=== PATIENT | female | born 1985 | race Caucasian/White ===

== ENCOUNTER 2019-03-08 18:03 | Inpatient (IN) | payer BC ==
[~2019-03-08] VITALS: Ht 167.6 cm; Wt 92.5 kg
[2019-03-08] MEDS ORDERED: SODIUM CHLORIDE 0.9% 1,000 ML IV ONE (21:52)
[2019-03-08] MEDS ORDERED: MORPHINE SULFATE 4 MG/ML CPJ (NOT FOR IM USE) IV STA (21:52)
[2019-03-08] MEDS ORDERED: ONDANSETRON HCL 4MG/2ML INJ IV STA (21:52)
[2019-03-08 22:21] LABS: CLARITY URINE CLEAR (CLEAR); COLOR URINE YELLOW (YELLOW); KETONES URINE 1+ (NEGATIVE); LEUKOCYTE ESTERASE URINE NEGATIVE (NEGATIVE); NITRITE URINE NEGATIVE (NEGATIVE); OCCULT BLOOD URINE NEGATIVE (NEGATIVE); PROTEIN URINE NEGATIVE (NEGATIVE); UROBILINOGEN URINE 0.2 E.U./dL (0.2-1.0)
[2019-03-08 22:53] LABS: BASOPHILS % 0.3 % (0.0-2.0); EOSINOPHILS % 0.5 % (0.0-5.0); HEMATOCRIT. 34.6 % (36.0-48.0); HEMOGLOBIN. 11.7 g/dL (12.0-16.0); LYMPHOCYTES % 35.8 % (20.0-50.0); MEAN CORPUSCULAR HEMOGLOBIN 27.8 pg (28.0-32.0); MEAN CORPUSCULAR VOLUME 82.3 fL (81.0-99.0); MEAN PLATELET VOLUME 7.7 fl (7.4-10.4); MONOCYTES % 5.9 % (2.0-8.0); NEUTROPHILS % 57.5 % (40.0-76.0); PLATELET 259 x1000/uL (130-400); RED BLOOD CELL COUNT 4.21 mill/uL (4.2-5.4)
[2019-03-08 22:55] LABS: HCG SCREEN NEGATIVE
[2019-03-08 22:56] LABS: PROTHROMBIN TIME 10.2 sec (9.6-11.0)
[2019-03-08 22:57] LABS: CHLORIDE 106 mEq/L (98-107)
[2019-03-08 23:01] LABS: ETHANOL BLOOD < 10 mg/dL
[2019-03-09] MEDS ORDERED: PIPERACILLIN/TAZ 3.375G PREMIX 50 ML IV ONE (00:15)
[2019-03-09] MEDS: MORPHINE SULFATE 2 MG/ML CPJ (NOT FOR IM USE) IV PRN ×2 (03:19→06:16)
[2019-03-09] MEDS ORDERED: HYDROMORPHONE HCL/PF 2MG/ML CPJ IV PRN (07:15)
[2019-03-09] MEDS ORDERED: ONDANSETRON HCL 4MG/2ML INJ IV PRN ×3 (07:15→09:15)
[2019-03-09] MEDS ORDERED: FENTANYL CITRATE/PF 50MCG/ML 2ML VIAL IV PRN (07:15)
[2019-03-09] MEDS ORDERED: ACETAMINOPHEN 325MG TABLET PO PRN (08:30)
[2019-03-09] MEDS ORDERED: SODIUM CHLORIDE 0.9% 1,000 ML IV SCH (08:30)
[2019-03-09] MEDS ORDERED: SKIN ADHESIVE 0.7 GM EA TOP ONE (09:05)
[2019-03-09] MEDS ORDERED: BUPIVACAINE HCL 0.5% (5MG/ML) 50ML ONE (09:06)
[2019-03-09] MEDS ORDERED: DEXT 5%/0.45% NACL KCL 20MEQ/L 1,000 ML IV SCH (09:12)
[2019-03-09] MEDS ORDERED: SUCCINYLCHOLINE CHLORIDE 200MG/10ML IV ONE (09:13)
[2019-03-09] MEDS ORDERED: PROPOFOL 200MG/20ML VIAL IV ONE (09:13)
[2019-03-09] MEDS ORDERED: FENTANYL CITRATE/PF 50MCG/ML 2ML VIAL ONE (09:13)
[2019-03-09] MEDS ORDERED: MIDAZOLAM HCL 2 MG/2 ML VIAL ONE (09:13)
[2019-03-09] MEDS ORDERED: LIDOCAINE HCL/PF 1% 10 MG/ML 5ML VIAL ONE (09:14)
[2019-03-09] MEDS ORDERED: MORPHINE SULFATE 4 MG/ML CPJ (NOT FOR IM USE) IV PRN (09:15)
[2019-03-09] MEDS ORDERED: HYDROCODONE/ACETAMINOPHEN 5/325MG TABLET PO PRN ×2 (09:15)
[2019-03-09] MEDS ORDERED: ROCURONIUM BROMIDE 10MG/ML VIAL 5ML IV ONE (09:17)
[2019-03-09] MEDS ORDERED: ESMOLOL HCL 10MG/ML 10ML VIAL IV ONE (09:30)
[2019-03-09] MEDS ORDERED: DEXAMETHASONE 4MG/ML 1ML VIAL ONE (09:30)
[2019-03-09] MEDS ORDERED: CEFAZOLIN SODIUM 1000MG/VIAL ONE (09:38)
[2019-03-09] MEDS ORDERED: KETOROLAC 30MG/ML VIAL ONE (09:47)
[2019-03-09] MEDS ORDERED: ONDANSETRON HCL 4MG/2ML INJ ONE (09:47)
[2019-03-09] MEDS ORDERED: METOCLOPRAMIDE HCL 10MG/2ML VIAL ONE (09:47)
[2019-03-09] MEDS ORDERED: NEOSTIGMINE METHYLSULFATE 1MG/ML 10 ML VIAL ONE (09:51)
[2019-03-09] MEDS ORDERED: GLYCOPYRROLATE 0.2 MG/ML 2ML VIAL ONE (09:51)
[2019-03-09] MEDS: DEXT 5%/0.45% NACL KCL 20MEQ/L 1,000 ML IV SCH ×2 (11:00→20:59)
[2019-03-09 12:00] VITALS: BP 118/64
[2019-03-09 12:18] VITALS: BP 127/79
[2019-03-09] MEDS: HYDROCODONE/ACETAMINOPHEN 5/325MG TABLET PO PRN ×2 (13:31→20:59)
[2019-03-09] MEDS ORDERED: METF-416 PO (13:54)
[2019-03-09] MEDS ORDERED: LOVA10TA54 PO (13:54)
[2019-03-09 16:00] VITALS: BP 114/60
[2019-03-09] MEDS: METFORMIN HCL 500MG TABLET PO SCH (17:13)
[2019-03-09 20:00] VITALS: BP 112/76
[2019-03-09] MEDS ORDERED: ATORVASTATIN CALCIUM 10MG TABLET PO SCH (21:00)
[2019-03-10] VITALS: BP 110/69
[2019-03-10 04:00] VITALS: BP 97/66
[2019-03-10 06:57] LABS: BASOPHILS % 0.2 % (0.0-2.0); EOSINOPHILS % 0.1 % (0.0-5.0); HEMATOCRIT. 32.4 % (36.0-48.0); HEMOGLOBIN. 10.8 g/dL (12.0-16.0); LYMPHOCYTES % 25.3 % (20.0-50.0); MEAN CORPUSCULAR HEMOGLOBIN 27.5 pg (28.0-32.0); MEAN CORPUSCULAR VOLUME 82.3 fL (81.0-99.0); MONOCYTES % 6.7 % (2.0-8.0); NEUTROPHILS % 67.7 % (40.0-76.0); PLATELET 261 x1000/uL (130-400); RED BLOOD CELL COUNT 3.93 mill/uL (4.2-5.4); RED CELL DISTRIBUTION WIDTH 14.1 % (11.6-14.6)
[2019-03-10 07:26] LABS: CHLORIDE 107 mEq/L (98-107)
[2019-03-10 08:00] VITALS: BP 107/75
[2019-03-10] MEDS: DEXT 5%/0.45% NACL KCL 20MEQ/L 1,000 ML IV SCH (08:45)
[2019-03-10] MEDS: METFORMIN HCL 500MG TABLET PO SCH (08:45)
[2019-03-10 09:40] VITALS: BP 107/75
== END 2019-03-10 10:16 | disposition home or self-care (01) | DRG 343 ==
LOC: ER 18:03 → 6EST 03-09 00:32 → ENRESERV 03-09 07:00
PROVIDERS: ADMIT Internal Medicine; ATTEND Internal Medicine
PROC: 0DTJ4ZZ Resection of Appendix, Percutaneous Endoscopic Approach (ICD-10-PCS; principal; 2019-03-09)
DX: K35.80 Unspecified acute appendicitis (principal); E11.9 Type 2 diabetes mellitus without complications; E28.2 Polycystic ovarian syndrome; E78.00 Pure hypercholesterolemia, unspecified; Z98.891 History of uterine scar from previous surgery; Z88.1 Allergy status to other antibiotic agents
CPT/HCPCS: 36415; 74176; 80048; 80320; 81025; 82962; 83036; 83605; 84484; 84703; 88304; 96361; 96365; 96366; 96375; 99285; J0330; J0690; J1100; J1170; J1885; J2250; J2270; J2405; J2543; J2704; J2710; J2765; J3010; J3490; J7030; G0480

== ENCOUNTER → 2019-07-24 | Outpatient (CLI) | payer BC ==
[~2019-07-24] MED LIST: LOVA10TA54 PO; METF-416 PO
[2019-07-24 08:00] LABS: BASOPHILS % 0.5 % (0.0-2.0); EOSINOPHILS % 0.4 % (0.0-5.0); HEMATOCRIT. 37.1 % (36.0-48.0); HEMOGLOBIN. 12.2 g/dL (12.0-16.0); LYMPHOCYTES % 34.8 % (20.0-50.0); MEAN CORPUSCULAR HEMOGLOBIN 26.4 pg (28.0-32.0); MEAN CORPUSCULAR VOLUME 80.6 fL (81.0-99.0); MEAN PLATELET VOLUME 7.8 fl (7.4-10.4); MONOCYTES % 5.1 % (2.0-8.0); NEUTROPHILS % 59.2 % (40.0-76.0); PLATELET 274 x1000/uL (130-400); RED BLOOD CELL COUNT 4.61 mill/uL (4.2-5.4); RED CELL DISTRIBUTION WIDTH 14.8 % (11.6-14.6)
[2019-07-24 08:14] LABS: CHLORIDE 104 mEq/L (98-107)
[2019-07-24 08:22] LABS: LDL CHOLESTEROL 119 mg/dL (5-100)
[2019-07-24 08:23] LABS: HDL CHOLESTEROL 48 mg/dL (40-59)
[2019-07-25 10:08] LABS: *CREATININE RANDOM URINE 102.1 mg/dL (Not Estab.)
== END | disposition home or self-care (01) ==
LOC: LAB 07:22
PROVIDERS: ATTEND Internal Medicine
DX: Z00.00 Encounter for general adult medical examination without abnormal findings (principal)
CPT/HCPCS: 36415; 80061; 82043; 82306; 82570; 83036; 84443

== ENCOUNTER 2019-07-26 13:02 | Emergency (ER) | payer BC ==
[~2019-07-26] VITALS: Ht 160 cm; Wt 90.0 kg
[2019-07-26] MEDS ORDERED: SODIUM CHLORIDE 0.9% 1,000 ML IV ONE (13:40)
[2019-07-26] MEDS ORDERED: KETOROLAC 30MG/ML VIAL IV STA (13:40)
[2019-07-26] MEDS ORDERED: ONDANSETRON HCL 4MG/2ML INJ IV STA ×2 (13:40→15:57)
[2019-07-26 14:16] LABS: CLARITY URINE CLEAR (CLEAR); COLOR URINE YELLOW (YELLOW); KETONES URINE 1+ (NEGATIVE); LEUKOCYTE ESTERASE URINE NEGATIVE (NEGATIVE); NITRITE URINE NEGATIVE (NEGATIVE); OCCULT BLOOD URINE NEGATIVE (NEGATIVE); PH URINE 5.5 (4.5-8.0); PROTEIN URINE NEGATIVE (NEGATIVE); UROBILINOGEN URINE 0.2 E.U./dL (0.2-1.0)
[2019-07-26 14:16] LABS: BASOPHILS % 0.2 % (0.0-2.0); EOSINOPHILS % 0.2 % (0.0-5.0); HEMATOCRIT. 38.1 % (36.0-48.0); HEMOGLOBIN. 12.6 g/dL (12.0-16.0); LYMPHOCYTES % 25.1 % (20.0-50.0); MEAN CORPUSCULAR HEMOGLOBIN 26.7 pg (28.0-32.0); MEAN CORPUSCULAR VOLUME 80.5 fL (81.0-99.0); MEAN PLATELET VOLUME 7.8 fl (7.4-10.4); MONOCYTES % 4.9 % (2.0-8.0); NEUTROPHILS % 69.6 % (40.0-76.0); PLATELET 295 x1000/uL (130-400); RED BLOOD CELL COUNT 4.73 mill/uL (4.2-5.4); RED CELL DISTRIBUTION WIDTH 14.8 % (11.6-14.6)
[2019-07-26 14:20] LABS: CHLORIDE 103 mEq/L (98-107)
[2019-07-26 14:36] LABS: HCG SCREEN NEGATIVE
[2019-07-26] MEDS ORDERED: MORPHINE SULFATE 4 MG/ML CPJ (NOT FOR IM USE) IV STA (15:57)
[2019-07-26 16:48] VITALS: BP 127/77
== END 2019-07-26 16:51 | disposition home or self-care (01) ==
LOC: ER 13:02
DX: R10.31 Right lower quadrant pain (principal); E78.00 Pure hypercholesterolemia, unspecified; E11.9 Type 2 diabetes mellitus without complications; Z79.84 Long term (current) use of oral hypoglycemic drugs; Z90.49 Acquired absence of other specified parts of digestive tract
CPT/HCPCS: 36415; 74176; 80053; 81003; 83690; 84703; 85025; 96374; 96375; 96376; 99284; J1885; J2270; J2405; J7030

== ENCOUNTER 2019-10-30 20:40 | Emergency (ER) | payer BC ==
[~2019-10-30] VITALS: Ht 165.1 cm; Wt 93.0 kg
[2019-10-30] MEDS ORDERED: ACETAMINOPHEN 325MG TABLET PO PRN (21:45)
[2019-10-30 22:07] LABS: CLARITY URINE CLEAR (CLEAR); COLOR URINE YELLOW (YELLOW); KETONES URINE TRACE (NEGATIVE); LEUKOCYTE ESTERASE URINE NEGATIVE (NEGATIVE); NITRITE URINE NEGATIVE (NEGATIVE); OCCULT BLOOD URINE NEGATIVE (NEGATIVE); PROTEIN URINE NEGATIVE (NEGATIVE); SPECIFIC GRAVITY URINE 1.023 (1.005-1.030); UROBILINOGEN URINE 0.2 E.U./dL (0.2-1.0)
[2019-10-30 23:20] LABS: CHLORIDE 106 mEq/L (98-107)
[2019-10-30 23:23] LABS: BASOPHILS % 0.4 % (0.0-2.0); EOSINOPHILS % 0.5 % (0.0-5.0); HEMATOCRIT. 36.3 % (36.0-48.0); MEAN CORPUSCULAR HEMOGLOBIN 26.2 pg (28.0-32.0); MEAN CORPUSCULAR VOLUME 79.3 fL (81.0-99.0); MEAN PLATELET VOLUME 7.7 fl (7.4-10.4); MONOCYTES % 7.5 % (2.0-8.0); NEUTROPHILS % 47.6 % (40.0-76.0); PLATELET 313 x1000/uL (130-400); RED BLOOD CELL COUNT 4.57 mill/uL (4.2-5.4); RED CELL DISTRIBUTION WIDTH 15.2 % (11.6-14.6)
[2019-10-30 23:30] LABS: B-HCG QUANTITATIVE 177 mIU/mL (<3)
[2019-10-31 00:31] VITALS: BP 113/68
== END 2019-10-31 00:34 | disposition home or self-care (01) ==
LOC: ER 20:40
DX: O9A.211 Injury, poisoning and certain other consequences of external causes complicating pregnancy, first trimester (principal); S39.91XA Unspecified injury of abdomen, initial encounter; O20.0 Threatened abortion; O99.281 Endocrine, nutritional and metabolic diseases complicating pregnancy, first trimester; E78.00 Pure hypercholesterolemia, unspecified; O24.911 Unspecified diabetes mellitus in pregnancy, first trimester; Z3A.01 Less than 8 weeks gestation of pregnancy; Z90.49 Acquired absence of other specified parts of digestive tract; Z98.890 Other specified postprocedural states; Z88.1 Allergy status to other antibiotic agents; W01.0XXA Fall on same level from slipping, tripping and stumbling without subsequent striking against object, initial encounter; Y93.89 Activity, other specified; Y92.89 Other specified places as the place of occurrence of the external cause; Y99.8 Other external cause status
CPT/HCPCS: 36415; 76801; 80053; 81003; 84702; 85025; 86850; 86900; 99285

== ENCOUNTER 2019-11-02 09:15 | Emergency (ER) | payer BC ==
[~2019-11-02] VITALS: Ht 165.1 cm; Wt 91.0 kg
[2019-11-02 09:36] VITALS: BP 137/86
== END 2019-11-02 11:30 | disposition home or self-care (01) ==
LOC: ER 09:15
DX: O26.891 Other specified pregnancy related conditions, first trimester (principal); N89.8 Other specified noninflammatory disorders of vagina; O24.911 Unspecified diabetes mellitus in pregnancy, first trimester; Z88.1 Allergy status to other antibiotic agents; Z88.8 Allergy status to other drugs, medicaments and biological substances; Z90.49 Acquired absence of other specified parts of digestive tract; Z3A.01 Less than 8 weeks gestation of pregnancy; Z98.890 Other specified postprocedural states
CPT/HCPCS: 36415; 76801; 84702; 99284

== ENCOUNTER → 2019-11-14 | Outpatient (CLI) | payer BC ==
[2019-11-14 09:22] LABS: T4 FREE 1.28 ng/dL (0.76-1.46)
[2019-11-16 09:06] LABS: HBSAG SCREEN Negative (Negative); HIV SCREEN 4G Non Reactive (Non Reactive)
[2019-11-17 13:10] LABS: HGB A 98.8 % (96.4-98.8); HGB A2 1.2 % (1.8-3.2)
[2019-11-18 13:06] LABS: 25-HYDROXY VITAMIN D3 15 ng/mL (.)
== END | disposition home or self-care (01) ==
LOC: LAB 08:18
PROVIDERS: ATTEND Obstetrics & Gynecology Obstetrics
DX: Z34.00 Encounter for supervision of normal first pregnancy, unspecified trimester (principal); Z3A.01 Less than 8 weeks gestation of pregnancy
CPT/HCPCS: 36415; 82306; 82947; 83021; 83036; 84439; 85660; 86592; 86762; 86803; 86900; 87340; 87389

== ENCOUNTER 2020-05-09 10:27 | Observation (INO) | payer BC ==
[~2020-05-09] VITALS: Ht 167.6 cm; Wt 107.0 kg
[2020-05-09] MEDS ORDERED: NPH,100V SQ ×2 (11:11→11:14)
[2020-05-09] MEDS ORDERED: INSLIS SUBCUT ×2 (11:13→11:16)
[2020-05-09 12:30] LABS: BASOPHILS % 0.3 % (0.0-2.0); EOSINOPHILS % 0.2 % (0.0-5.0); HEMATOCRIT. 35.7 % (36.0-48.0); LYMPHOCYTES % 22.5 % (20.0-50.0); MEAN CORPUSCULAR HEMOGLOBIN 29.4 pg (28.0-32.0); MEAN CORPUSCULAR VOLUME 87.3 fL (81.0-99.0); MONOCYTES % 5.4 % (2.0-8.0); NEUTROPHILS % 71.6 % (40.0-76.0); PLATELET 212 x1000/uL (130-400); RED BLOOD CELL COUNT 4.09 mill/uL (4.2-5.4); RED CELL DISTRIBUTION WIDTH 13.2 % (11.6-14.6)
[2020-05-09 12:38] LABS: CHLORIDE 108 mEq/L (98-107)
[2020-05-09 12:44] LABS: D-DIMER 0.65 mg/L FEU (<0.50); INR 0.9; PARTIAL THROMBOPLASTIN TIME 26.8 sec (23.4-31.0); PROTHROMBIN TIME 9.7 sec (9.6-11.0)
[2020-05-09 13:36] LABS: CLARITY URINE CLEAR (CLEAR); COLOR URINE YELLOW (YELLOW); KETONES URINE NEGATIVE (NEGATIVE); LEUKOCYTE ESTERASE URINE NEGATIVE (NEGATIVE); NITRITE URINE NEGATIVE (NEGATIVE); OCCULT BLOOD URINE NEGATIVE (NEGATIVE); PH URINE 6.5 (4.5-8.0); PROTEIN URINE NEGATIVE (NEGATIVE); SPECIFIC GRAVITY URINE 1.009 (1.005-1.030); UROBILINOGEN URINE 0.2 E.U./dL (0.2-1.0)
== END 2020-05-09 13:45 | disposition home or self-care (01) ==
LOC: 8 EST LDRP 10:27
PROVIDERS: ADMIT Obstetrics & Gynecology Obstetrics; ATTEND Obstetrics & Gynecology Obstetrics
DX: O13.3 Gestational [pregnancy-induced] hypertension without significant proteinuria, third trimester (principal); O24.414 Gestational diabetes mellitus in pregnancy, insulin controlled; O26.893 Other specified pregnancy related conditions, third trimester; R51 Headache; Z3A.31 31 weeks gestation of pregnancy
CPT/HCPCS: 36415; 80053; 81003; 84550; 85025; 85379; 85384; 85610; 85730; G0378; 99281

== ENCOUNTER 2020-05-22 11:26 | Observation (INO) | payer BC ==
[~2020-05-22] VITALS: Ht 167.6 cm; Wt 108.9 kg
[~2020-05-22 11:26] MED LIST changes: +INSLIS SUBCUT; +NPH,100V SQ
[2020-05-22] MEDS ORDERED: METF-416 MT (11:51)
[2020-05-22] MEDS ORDERED: METF-414 MT (11:52)
== END 2020-05-22 12:50 | disposition home or self-care (01) ==
LOC: 8 EST LDRP 11:26
PROVIDERS: ADMIT Obstetrics & Gynecology Obstetrics; ATTEND Obstetrics & Gynecology Obstetrics
DX: O36.8130 Decreased fetal movements, third trimester, not applicable or unspecified (principal); Z3A.33 33 weeks gestation of pregnancy
CPT/HCPCS: 59025; G0378; 99281

== ENCOUNTER 2020-06-04 21:46 | Inpatient (IN) | payer BC ==
[~2020-06-04] VITALS: Ht 167.6 cm; Wt 108.9 kg
[2020-06-04] MEDS: LACTATED RINGERS 1,000 ML IV SCH (00:08)
[~2020-06-04 21:46] MED LIST changes: +METF-414 MT; +METF-416 MT; -METF-416 PO
[2020-06-04] MEDS ORDERED: TERBUTALINE SULFATE 1MG/ML VIAL SUBCUT PRN (23:30)
[2020-06-04 23:49] LABS: BASOPHILS % 0.2 % (0.0-2.0); EOSINOPHILS % 0.3 % (0.0-5.0); LYMPHOCYTES % 18.2 % (20.0-50.0); MEAN CORPUSCULAR HEMOGLOBIN 29.6 pg (28.0-32.0); MEAN CORPUSCULAR VOLUME 85.9 fL (81.0-99.0); MEAN PLATELET VOLUME 8.7 fl (7.4-10.4); MONOCYTES % 5.9 % (2.0-8.0); NEUTROPHILS % 75.4 % (40.0-76.0); PLATELET 166 x1000/uL (130-400); RED BLOOD CELL COUNT 3.73 mill/uL (4.2-5.4)
[2020-06-04 23:54] LABS: CHLORIDE 108 mEq/L (98-107)
[2020-06-05 00:01] LABS: INR 0.9; PARTIAL THROMBOPLASTIN TIME 25.7 sec (23.4-31.0); PROTHROMBIN TIME 9.6 sec (9.6-11.0)
[2020-06-05 00:28] LABS: HEPATITIS B SURFACE ANTIGEN NEGATIVE
[2020-06-05 01:31] LABS: CLARITY URINE CLEAR (CLEAR); COLOR URINE YELLOW (YELLOW); KETONES URINE NEGATIVE (NEGATIVE); LEUKOCYTE ESTERASE URINE NEGATIVE (NEGATIVE); NITRITE URINE NEGATIVE (NEGATIVE); OCCULT BLOOD URINE NEGATIVE (NEGATIVE); PH URINE 6.5 (4.5-8.0); PROTEIN URINE 1+ (NEGATIVE); SPECIFIC GRAVITY URINE 1.016 (1.005-1.030); UROBILINOGEN URINE 0.2 E.U./dL (0.2-1.0)
[2020-06-05 01:45] LABS: *AMPHETAMINES SCREEN URINE NEGATIVE (NEGATIVE); *BARBITURATES SCREEN URINE NEGATIVE (NEGATIVE)
[2020-06-05] MEDS ORDERED: MAGNESIUM 4 G PREMIX 100 ML IV ONE (01:45)
[2020-06-05 01:46] LABS: *BENZODIAZEPINES SCREEN URINE NEGATIVE (NEGATIVE); *COCAINE SCREEN URINE NEGATIVE (NEGATIVE); CANNABINOID URINE SCREEN NEGATIVE (NEGATIVE); METHADONE URINE SCREEN NEGATIVE (NEGATIVE); OPIATES URINE SCREEN NEGATIVE (NEGATIVE); PHENCYCLIDINE URINE SCREEN NEGATIVE (NEGATIVE)
[2020-06-05] MEDS: LACTATED RINGERS 1,000 ML IV SCH (02:40)
[2020-06-05] MEDS: MAGNESIUM 20 G PREMIX (L & D) 500 ML IV SCH ×3 (03:07→21:32)
[2020-06-05] MEDS ORDERED: ACETAMINOPHEN 650MG/20.3ML UDC PO PRN (05:15)
[2020-06-05] MEDS: ACETAMINOPHEN 325MG TABLET PO PRN ×2 (05:41→11:08)
[2020-06-05] MEDS ORDERED: MAGNESIUM 1 G PREMIX 100 ML IV SCH (06:00)
[2020-06-05] MEDS ORDERED: METF-416 PO (06:05)
[2020-06-05] MEDS ORDERED: NPH,100V SQ (06:05)
[2020-06-05] MEDS ORDERED: INSU100V37 SQ (06:05)
[2020-06-05] MEDS ORDERED: INSLIS SUBCUT (06:05)
[2020-06-05] MEDS ORDERED: PREN-182 PO (06:05)
[2020-06-05] MEDS ORDERED: METF-815 PO (06:05)
[2020-06-05] MEDS ORDERED: ASPI-1497 PO (06:05)
[2020-06-05] MEDS: BLOOD SUGAR DIAGNOSTIC STRIP TEST SCH ×2 (11:10→13:10)
[2020-06-05] MEDS ORDERED: DEXTROSE 50% WATER 50ML SYRINGE IV PRN (11:30)
[2020-06-05] MEDS ORDERED: INSULIN LISPRO 100 UNITS/ML SUBCUT SCH ×2 (12:00→17:00)
[2020-06-05] MEDS ORDERED: METFORMIN HCL 500MG TABLET PO SCH ×2 (12:00→17:00)
[2020-06-05] MEDS ORDERED: PNEUMOCOCCAL 23-VAL P-SAC VAC 0.5 ML IM ONE (12:00)
[2020-06-05] MEDS ORDERED: BETAMETHASONE ACET/BETAMET 30 MG/5 ML VIAL IM SCH (12:00)
[2020-06-05] MEDS ORDERED: LACTATED RINGERS 1,000 ML IV SCH (12:45)
[2020-06-05] MEDS ORDERED: INSULIN NPH (HUMULIN-N) 100 UNITS/ML 3ML VIAL SUBCUT SCH (18:15)
[2020-06-05] MEDS ORDERED: MISOPROSTOL 200MCG TABLET RC ONE (19:20)
[2020-06-05] MEDS ORDERED: MAGNESIUM 20 G PREMIX (L & D) 500 ML IV SCH ×2 (19:30→23:30)
[2020-06-05] MEDS ORDERED: LABETALOL HCL 5MG/ML VIAL 20ML IV PRN ×3 (19:45)
[2020-06-05] MEDS: HYDROMORPHONE HCL/PF 2MG/ML CPJ IV PRN ×4 (20:40→22:15)
[2020-06-05] MEDS ORDERED: SODIUM CHLORIDE 0.9% IV NR (21:00)
[2020-06-05] MEDS ORDERED: OXYTOCIN IV NR (21:00)
[2020-06-05] MEDS ORDERED: DIPHENHYDRAMINE 50MG/ML VIAL IV PRN (22:30)
[2020-06-05] MEDS ORDERED: ONDANSETRON HCL 4MG/2ML INJ IV PRN (22:30)
[2020-06-05 22:55] VITALS: BP 122/66
[2020-06-05 23:30] VITALS: BP 132/60
[2020-06-06] VITALS (7 sets, daily range): BP systolic 111–134; BP diastolic 63–78
[2020-06-06] MEDS: HYDROCODONE/ACETAMINOPHEN 5/325MG TABLET PO PRN ×2 (04:54→10:25)
[2020-06-06 07:51] LABS: BASOPHILS % 0.1 % (0.0-2.0); HEMATOCRIT. 25.6 % (36.0-48.0); HEMOGLOBIN. 8.4 g/dL (12.0-16.0); LYMPHOCYTES % 10.2 % (20.0-50.0); MEAN CORPUSCULAR HEMOGLOBIN 28.5 pg (28.0-32.0); MEAN PLATELET VOLUME 9.3 fl (7.4-10.4); NEUTROPHILS % 85.7 % (40.0-76.0); PLATELET 180 x1000/uL (130-400); RED BLOOD CELL COUNT 2.94 mill/uL (4.2-5.4)
[2020-06-06] MEDS ORDERED: INSULIN NPH (HUMULIN-N) 100 UNITS/ML 3ML VIAL SUBCUT SCH (08:15)
[2020-06-06] MEDS: METFORMIN HCL 500MG TABLET PO SCH ×2 (08:28→21:31)
[2020-06-06] MEDS: DOCUSATE SODIUM 100MG CAPSULE PO SCH (19:20)
[2020-06-06] MEDS: ACETAMINOPHEN 325MG TABLET PO PRN (19:20)
[2020-06-07 00:01] VITALS: BP 138/69
[2020-06-07] MEDS: ACETAMINOPHEN 325MG TABLET PO PRN ×3 (00:19→12:27)
[2020-06-07 04:30] VITALS: BP 121/73
[2020-06-07 08:00] VITALS: BP 117/66
[2020-06-07] MEDS: METFORMIN HCL 500MG TABLET PO SCH ×2 (10:17→19:06)
[2020-06-07] MEDS: HYDROCODONE/ACETAMINOPHEN 5/325MG TABLET PO PRN (18:58)
[2020-06-07 20:00] VITALS: BP 120/72
[2020-06-08] VITALS: BP 112/67
[2020-06-08 04:00] VITALS: BP 126/76
[2020-06-08 08:00] VITALS: BP 114/79
[2020-06-08] MEDS: METFORMIN HCL 500MG TABLET PO SCH ×2 (10:10→19:32)
[2020-06-08] MEDS: HYDROCODONE/ACETAMINOPHEN 5/325MG TABLET PO PRN (12:05)
[2020-06-08 15:58] VITALS: BP 136/80
[2020-06-08 19:30] VITALS: BP 120/65
[2020-06-08] MEDS: DOCUSATE SODIUM 100MG CAPSULE PO SCH (19:32)
[2020-06-09] MEDS: HYDROCODONE/ACETAMINOPHEN 5/325MG TABLET PO PRN (00:13)
[2020-06-09 04:00] VITALS: BP 120/65
[2020-06-09 08:00] VITALS: BP 114/81
[2020-06-09] MEDS: METFORMIN HCL 500MG TABLET PO SCH (08:12)
[2020-06-09] MEDS ORDERED: INFLUENZA VACCINE 05/PF 0.5 ML VIAL IM ONE (09:00)
[2020-06-09] MEDS: DOCUSATE SODIUM 100MG CAPSULE PO SCH (09:25)
[2020-07-05] MEDS ORDERED: MISOPROSTOL 200MCG TABLET ONE (17:47)
== END 2020-06-09 15:15 | disposition home or self-care (01) | DRG 786 ==
LOC: OBSVTOIN 21:46 → 8 EST LDRP 21:46 → 8EST 06-05 23:18
PROVIDERS: ADMIT Obstetrics & Gynecology Obstetrics; ATTEND Obstetrics & Gynecology Obstetrics
PROC: 10D00Z1 Extraction of Products of Conception, Low, Open Approach (ICD-10-PCS; principal; 2020-06-05)
DX: O60.14X0 Preterm labor third trimester with preterm delivery third trimester, not applicable or unspecified (principal); O24.12 Pre-existing type 2 diabetes mellitus, in childbirth; O99.892 Other specified diseases and conditions complicating childbirth; E11.9 Type 2 diabetes mellitus without complications; O13.4 Gestational [pregnancy-induced] hypertension without significant proteinuria, complicating childbirth; N73.6 Female pelvic peritoneal adhesions (postinfective); O34.211 Maternal care for low transverse scar from previous cesarean delivery; O99.214 Obesity complicating childbirth; E66.9 Obesity, unspecified; O14.94 Unspecified pre-eclampsia, complicating childbirth; O76 Abnormality in fetal heart rate and rhythm complicating labor and delivery; Z3A.35 35 weeks gestation of pregnancy; Z37.0 Single live birth; Z88.8 Allergy status to other drugs, medicaments and biological substances; Z20.828 Contact with and (suspected) exposure to other viral communicable diseases
CPT/HCPCS: 36415; 76815; 80053; 80305; 81003; 82947; 82962; 83036; 83735; 84484; 84550; 85025; 85384; 86592; 86703; 86762; 86850; 86900; 86920; 87340; 88307; 90686; 93005; 99281; J0702; J1170; J1200; J1815; J2405; J3105; J3475; J3490; J7030; J7120; U0003-CS

== ENCOUNTER 2020-12-20 15:09 | Emergency (ER) | payer BC ==
[~2020-12-20] VITALS: Ht 165.1 cm; Wt 76.0 kg
[2020-12-20 15:40] LABS: BASOPHILS % 0.5 % (0.0-2.0); EOSINOPHILS % 0.5 % (0.0-5.0); HEMATOCRIT. 33.1 % (36.0-48.0); HEMOGLOBIN. 10.3 g/dL (12.0-16.0); LYMPHOCYTES % 39.9 % (20.0-50.0); MEAN CORPUSCULAR HEMOGLOBIN 21.8 pg (28.0-32.0); MEAN CORPUSCULAR VOLUME 69.8 fL (81.0-99.0); MEAN PLATELET VOLUME 7.4 fl (7.4-10.4); MONOCYTES % 5.1 % (2.0-8.0); PLATELET 329 x1000/uL (130-400); RED BLOOD CELL COUNT 4.74 mill/uL (4.2-5.4); RED CELL DISTRIBUTION WIDTH 17.1 % (11.6-14.6)
[2020-12-20 15:47] LABS: CHLORIDE 102 mEq/L (98-107)
[2020-12-20 16:21] LABS: PLATELET ESTIMATE NORMAL
[2020-12-20 17:51] LABS: CLARITY URINE CLEAR (CLEAR); COLOR URINE YELLOW (YELLOW); KETONES URINE TRACE (NEGATIVE); LEUKOCYTE ESTERASE URINE NEGATIVE (NEGATIVE); NITRITE URINE NEGATIVE (NEGATIVE); OCCULT BLOOD URINE 1+ (NEGATIVE); PROTEIN URINE NEGATIVE (NEGATIVE); SPECIFIC GRAVITY URINE 1.014 (1.005-1.030); UROBILINOGEN URINE 0.2 E.U./dL (0.2-1.0)
[2020-12-20 18:00] VITALS: BP 119/86
== END 2020-12-20 18:58 | disposition home or self-care (01) ==
LOC: ER 15:09
DX: R00.2 Palpitations (principal); E11.9 Type 2 diabetes mellitus without complications; E78.00 Pure hypercholesterolemia, unspecified; Z88.3 Allergy status to other anti-infective agents
CPT/HCPCS: 36415; 71045; 80053; 81003; 81025; 84443; 85025; 93005; 99285

== ENCOUNTER 2021-04-27 18:14 | Emergency (ER) | payer BC ==
[~2021-04-27] VITALS: Ht 167.6 cm; Wt 93.0 kg
[2021-04-28] MEDS ORDERED: VISCOUS LIDOCAINE 2% 15 ML UDC PO STA (00:21)
[2021-04-28] MEDS ORDERED: MAGNESIUM/ALUMINUM HYDROXIDE/SIMETHICONE 30ML UDC PO STA (00:21)
[2021-04-28 00:58] LABS: BASOPHILS % 0.8 % (0.0-2.0); CHLORIDE 104 mEq/L (98-107); EOSINOPHILS % 0.5 % (0.0-5.0); HEMATOCRIT. 33.9 % (36.0-48.0); LYMPHOCYTES % 29.1 % (20.0-50.0); MEAN CORPUSCULAR HEMOGLOBIN 23.2 pg (28.0-32.0); MEAN CORPUSCULAR VOLUME 71.7 fL (81.0-99.0); MEAN PLATELET VOLUME 7.8 fl (7.4-10.4); MONOCYTES % 4.7 % (2.0-8.0); NEUTROPHILS % 64.9 % (40.0-76.0); PLATELET 305 x1000/uL (130-400); RED BLOOD CELL COUNT 4.72 mill/uL (4.2-5.4); RED CELL DISTRIBUTION WIDTH 17.3 % (11.6-14.6)
[2021-04-28 01:02] LABS: CLARITY URINE CLEAR (CLEAR); COLOR URINE YELLOW (YELLOW); KETONES URINE 2+ (NEGATIVE); LEUKOCYTE ESTERASE URINE NEGATIVE (NEGATIVE); NITRITE URINE NEGATIVE (NEGATIVE); OCCULT BLOOD URINE NEGATIVE (NEGATIVE); PROTEIN URINE NEGATIVE (NEGATIVE); SPECIFIC GRAVITY URINE 1.018 (1.005-1.030); UROBILINOGEN URINE 0.2 E.U./dL (0.2-1.0)
[2021-04-28 03:10] VITALS: BP 122/74
== END 2021-04-28 03:17 | disposition home or self-care (01) ==
LOC: ER 18:14
DX: R10.11 Right upper quadrant pain (principal); K76.0 Fatty (change of) liver, not elsewhere classified; E11.9 Type 2 diabetes mellitus without complications; E78.00 Pure hypercholesterolemia, unspecified; Z90.49 Acquired absence of other specified parts of digestive tract; Z98.890 Other specified postprocedural states; Z88.3 Allergy status to other anti-infective agents
CPT/HCPCS: 36415; 76700; 80053; 81003; 81025; 85025; 99284

== ENCOUNTER → 2021-06-11 | Outpatient (CLI) | payer BC ==
[2021-06-11 12:19] LABS: BASOPHILS % 0.5 % (0.0-2.0); EOSINOPHILS % 0.5 % (0.0-5.0); HEMATOCRIT. 34.8 % (36.0-48.0); HEMOGLOBIN. 11.4 g/dL (12.0-16.0); LYMPHOCYTES % 33.5 % (20.0-50.0); MEAN CORPUSCULAR HEMOGLOBIN 23.8 pg (28.0-32.0); MEAN CORPUSCULAR VOLUME 72.6 fL (81.0-99.0); MEAN PLATELET VOLUME 7.4 fl (7.4-10.4); MONOCYTES % 5.6 % (2.0-8.0); NEUTROPHILS % 59.9 % (40.0-76.0); PLATELET 351 x1000/uL (130-400); RED BLOOD CELL COUNT 4.79 mill/uL (4.2-5.4); RED CELL DISTRIBUTION WIDTH 17.3 % (11.6-14.6)
[2021-06-11 12:27] LABS: CHLORIDE 105 mEq/L (98-107)
[2021-06-11 12:34] LABS: LDL CHOLESTEROL 127 mg/dL (5-100)
[2021-06-11 12:37] LABS: HDL CHOLESTEROL 59 mg/dL (40-59)
[2021-06-11 12:46] LABS: CLARITY URINE CLEAR (CLEAR); COLOR URINE YELLOW (YELLOW); KETONES URINE TRACE (NEGATIVE); LEUKOCYTE ESTERASE URINE NEGATIVE (NEGATIVE); NITRITE URINE NEGATIVE (NEGATIVE); OCCULT BLOOD URINE NEGATIVE (NEGATIVE); PROTEIN URINE NEGATIVE (NEGATIVE); SPECIFIC GRAVITY URINE 1.018 (1.005-1.030); UROBILINOGEN URINE 0.2 E.U./dL (0.2-1.0)
== END | disposition home or self-care (01) ==
LOC: LAB 11:40
PROVIDERS: ATTEND Internal Medicine
DX: Z00.00 Encounter for general adult medical examination without abnormal findings (principal); E55.9 Vitamin D deficiency, unspecified
CPT/HCPCS: 36415; 80053; 80061; 81003; 82306; 83036; 84443; 85025

== ENCOUNTER → 2021-06-25 | Outpatient (CLI) | payer BC | END | disposition home or self-care (01) | LOC: MAMMO 13:25 | PROVIDERS: ATTEND Internal Medicine | DX: N64.89 Other specified disorders of breast (principal); N64.4 Mastodynia | CPT/HCPCS: 76642; 77066 ==

== ENCOUNTER → 2023-05-20 | Outpatient (CLI) | payer BC ==
[2023-05-20 09:57] LABS: BASOPHILS % 0.6 % (0.0-2.0); EOSINOPHILS % 0.5 % (0.0-5.0); HEMATOCRIT. 33.8 % (36.0-48.0); HEMOGLOBIN. 10.6 g/dL (12.0-16.0); LYMPHOCYTES % 36.9 % (20.0-50.0); MEAN CORPUSCULAR HGB CONC 31.5 g/dL (31.0-37.0); MEAN CORPUSCULAR VOLUME 69.7 fL (81.0-99.0); MEAN PLATELET VOLUME 7.2 fl (7.4-10.4); MONOCYTES % 4.9 % (2.0-8.0); NEUTROPHILS % 57.1 % (40.0-76.0); PLATELET 328 x1000/uL (130-400); RED BLOOD CELL COUNT 4.84 mill/uL (4.2-5.4); RED CELL DISTRIBUTION WIDTH 16.8 % (11.6-14.6); WHITE BLOOD COUNT 4.6 x1000/uL (4.5-11.0)
[2023-05-20 10:01] LABS: ADD RBC MORPHOLOGY YES; DIFFERENTIAL COMMENT 1
[2023-05-20 10:07] LABS: CLARITY URINE CLEAR (CLEAR); COLOR URINE YELLOW (YELLOW); GLUCOSE URINE 3+ (NEGATIVE); KETONES URINE TRACE (NEGATIVE); LEUKOCYTE ESTERASE URINE NEGATIVE (NEGATIVE); NITRITE URINE NEGATIVE (NEGATIVE); OCCULT BLOOD URINE NEGATIVE (NEGATIVE); PH URINE 5.5 (4.5-8.0); PROTEIN URINE NEGATIVE (NEGATIVE); SPECIFIC GRAVITY URINE 1.027 (1.005-1.030); UROBILINOGEN URINE 0.2 E.U./dL (0.2-1.0)
[2023-05-20 10:11] LABS: YEAST URINE NONE SEEN
[2023-05-20 10:33] LABS: BACTERIA URINE FEW; RBC URINE 0-2 /hpf (0-2); SQUAMOUS EPITHELIAL CELL URINE FEW /lpf (RARE/1+); WBC URINE 0-2 /hpf (0-2)
[2023-05-20 10:38] LABS: CHLORIDE 102 mEq/L (98-107); INDEX HEMOLYSI 1 (1-3); INDEX ICTERIC 1 (1-4); INDEX LIPEMIC 1 (1-3); POTASSIUM 3.8 mEq/L (3.5-5.1); SODIUM 132 mEq/L (136-145)
[2023-05-20 10:55] LABS: ALANINE AMINOTRANSFERASE 23 IU/L (13-61); ALBUMIN 3.9 g/dL (3.4-5.0); ASPARTATE AMINOTRANSFERASE 12 IU/L (15-37); BILIRUBIN TOTAL 0.4 mg/dL (0.1-1.0); CARBON DIOXIDE 24 mEq/L (21-32); CHOLESTEROL 194 mg/dL (<200); CREATININE 0.4 mg/dL (0.6-1.3); GLUCOSE 236 mg/dL (70-105); HDL CHOLESTEROL 57 mg/dL (40-59); LDL CHOLESTEROL 127 mg/dL (5-100); PROTEIN TOTAL 7.7 g/dL (6.0-8.3); THYROID STIMULATING HORMONE 0.54 uIU/mL (0.36-3.74); TRIGLYCERIDE 143 mg/dL (0-150); UREA NITROGEN BLOOD 8 mg/dL (7-21)
[2023-05-20 12:57] LABS: MICROCYTOSIS 3+; PLATELET ESTIMATE NORMAL
== END | disposition home or self-care (01) ==
LOC: LAB 09:25
PROVIDERS: ATTEND Internal Medicine
DX: J44.9 Chronic obstructive pulmonary disease, unspecified (principal)
CPT/HCPCS: 36415; 80053; 80061; 81003; 82306; 83036; 84443; 85025